=== PATIENT | female | born 1955 | race Caucasian/White ===

== ENCOUNTER 2021-10-11 15:05 | Inpatient (IN) | payer OTHER ==
[~2021-10-11] VITALS: Ht 172.7 cm; Wt 107.0 kg
[2021-10-11 15:09] VITALS: BP 154/79
[2021-10-11] MEDS ORDERED: TRAMADOL 50 MG50 MG PO (15:13)
[2021-10-11] MEDS ORDERED: WELLBUTRIN 100100 MG PO (15:13)
--- NOTE | 2021-10-11 16:06 | EKG ---
[place] [address] ELECTROCARDIOGRAM REPORT Name: CHELSEY CURRY Room: [facility]#: [id number] Admission: Attend Phys: Discharge: Date of : 53 Date of Service: 10/11/211510 Report #: [id number] THIS REPORT FOR: //name// [facility] ED Test Date: 2021-10-11 Test Time: 15:11:39 Pat Name: CHELSEY CURRY Department: Room: Gender: F Piano Case [employer]: TO : 1955 Requested By: Remington Austin Order Number: [id number] MD: Osmin Maldonado Measurements Intervals [place] Rate: 117 P: 90 [place]: 171 QRS: 81 QRSD: 132 T: 19 QT: 328 QTc: 458 Interpretive Statements Sinus tachycardia artifact noted Borderline repolarization abnormality No previous ECG available for comparison Electronically Signed On 10-11-2021 16:06:44 [employer] by Osmin Maldonado [email or web address] <ELECTRONICALLY SIGNED> By: Osmin Maldonado MD, [facility] 10/11/21 1606 10 1511 Osmin Maldonado MD, FACC /EPI
[2021-10-11 16:09] LABS: ABSOLUTE EOSINOPHILS 0.1 thou/uL (0.0-0.7); ABSOLUTE LYMPHOCYTES 0.9 thou/uL (0.8-5.3); ABSOLUTE MONOCYTES 0.6 thou/uL (0.0-1.2); ABSOLUTE NEUTROPHILS 5.8 thou/uL (1.6-8.1); BASOPHILS 0.5 %; EOSINOPHILS 1.3 %; HEMATOCRIT 32.5 % (37.0-47.0); HEMOGLOBIN 9.8 gm/dL (12.0-15.0); LYMPHOCYTES 11.9 %; MCH 26.9 pg (26.0-34.0); MCV 89.6 fL (80.0-100.0); MONOCYTES 7.9 %; MPV 6.7 fl. (7.2-11.1); NUCLEATED RBCS 0 /100WBC; PLATELET COUNT* 410 thou/uL (150-400); POLYS 78.4 %; RBC 3.62 mil/uL (4.20-5.00); RDW-CV 21.2 % (10.5-14.5); WBC 7.4 thou/uL (4.0-11.0)
[2021-10-11 16:14] LABS: CALCIUM 8.5 mg/dL (8.5-10.1); CREATININE 1.4 mg/dL (0.6-1.3); POTASSIUM 3.7 mmol/L (3.5-5.1)
[2021-10-11 16:25] LABS: ALBUMIN 1.8 g/dL (3.4-5.0); TOTAL BILIRUBIN 0.2 mg/dL (<0.1-1.0); TOTAL PROTEIN 6.3 g/dL (6.4-8.2)
[2021-10-11 16:55] VITALS: BP 154/79
[2021-10-11 17:33] LABS: ANISOCYTOSIS 1+; MACROCYTES 1+
[2021-10-11 17:34] LABS: OVALOCYTES Occasional; PLATELET ESTIMATE ADEQUATE
[2021-10-11 17:45] VITALS: BP 148/77
== END 2021-10-12 | disposition home health service (06) | DRG 177 ==
LOC: M.ERS 15:05 → M.2W 16:10 → M.TBA-ER 16:10 → M.2W 17:23
PROVIDERS: Family Medicine; ADMIT Internal Medicine; ATTEND Internal Medicine
DX: J15.6 Pneumonia due to other Gram-negative bacteria (principal); J96.21 Acute and chronic respiratory failure with hypoxia; L03.115 Cellulitis of right lower limb; L03.116 Cellulitis of left lower limb; Z20.822 Contact with and (suspected) exposure to COVID-19; G82.20 Paraplegia, unspecified; L97.929 Non-pressure chronic ulcer of unspecified part of left lower leg with unspecified severity; J44.0 Chronic obstructive pulmonary disease with (acute) lower respiratory infection; R54 Age-related physical debility; E88.09 Other disorders of plasma-protein metabolism, not elsewhere classified; I27.20 Pulmonary hypertension, unspecified; E87.70 Fluid overload, unspecified; J15.9 Unspecified bacterial pneumonia; D64.9 Anemia, unspecified; B95.62 Methicillin resistant Staphylococcus aureus infection as the cause of diseases classified elsewhere; Z91.09 Other allergy status, other than to drugs and biological substances